=== PATIENT | male | born 1965 | race Caucasian/White ===

== ENCOUNTER 2017-04-13 09:46 | Emergency (ER) | payer BC, SELFPAY ==
[2017-04-13 09:59] VITALS: BP 160/96; PULSE 77; RESP 20; TEMP 38; O2SAT 96; BMI 34.4
--- NOTE | 2017-04-13 10:12 | HMH.EDUTC ---
[facility] [place] Disposition Clinical Impression: Influenza B Disposition: Home, Self-Care Condition on Discharge: Good Instructions: DI for Influenza -- Adult Additional Instructions: * Start Tamiflu today if you are going to take it. Discussed risks and possible benefits. * Lots of rest * Increase fluids, water, gatorade, powerade, pedialyte if /toddler/child * Monitor Temp. Tylenol every 4 hours as needed no more then 5 times a day or 4000mg in 24 hours and/or ibuprofen every 6 hours as needed no more then 3200mg in 24 hours (as long as your primary care doctor has told you that it is ok to take both) for fever/aches/pain. ER if fever no less than 101 despite tylenol and Ibuprofen * OTC cold/flu/sinus medication is ok but pick one. Do not take multiple different ones as they have similar ingredients and you can overdose on cold medication. Use caution with OTC cough and sinus medication due to your high blood pressure. Coriciden HBP products are safest in those with high blood pressure. * You (or your child) are contagious until no fever, aches, chills x 24 hours without medication for symptoms. Prescriptions: Oseltamivir Phosphate [Tamiflu 75mg Capsule] 75 mg PO BID #10 capsule Referrals: Stephen Moreno MD [Primary Care Provider] - (IMMEDIATELY for new or worsening symptoms, improvement followed by suddenly feeling worse OR no noticeable improvement over the next 48-72 hours. 911 for difficulty breathing ) Time of Disposition: 10:20 Medical Decision Making Vital Signs: 04/13/17 09:59 Temperature 100.4 F H Temperature Source Oral Pulse Rate [Right Brachial] 77 Respiratory Rate 20 Blood Pressure [Right Arm] 160/96 Blood Pressure Mean [Right Arm] 117 Blood Pressure Source [Right Arm] Automatic Cuff Blood Pressure Position [Right Arm] Sitting 02 Sat by Pulse Oximetry 96 Oxygen Delivery Method Room Air - Lab Data Lab results reviewed: Yes: I reviewed the patient's lab results. Lab Results 04/13/17 10:06: Influenza Type A Ag Negative, Influenza Type B Ag Positive A FLu B positive - Miguel Inquiry Pt receiving controlled substance: No [facility] [place] HPI - General Stated complaint: drainage,sore throat,coughing Time Seen by Provider: 04/13/17 10:00 Mode of Arrival: Ambulatory Source of Information: Patient Limitations: No Limitations Description of Symptoms (Recalled from Triage Doc. by RN): PT C/O CONGESTION, EARACHE, AND COUGH HEENT Symptoms (Recalled from RN notes): Yes (EARACHE) Resp Symptoms (Recalled from RN notes): Yes (CONGESTION, COUGH) Skin Symptoms (Recalled from RN notes): No MS Symptoms (Recalled from RN notes): No Functional Status (Recalled from RN notes): N/A - History of Present Illness Provider Complaint: c/o PND, rhinorrhea, nasal congestion, cough starting around a week ago. Reports started mild but over the last 24 hours has suddenly been getting worse instead of better. Son had similiar symptoms around the same time and is already feeling better. Pt works in an [employer] school. Has felt feverish at times just recently but no fever at home. Denies aches (other than chronic right knee pain) or chills. otc cold and flu just yesterday didn't seem to help. Otherwise, hasn't taken or tried anything else. - Related Data Previous Rx's Medication Instructions Recorded Oseltamivir Phosphate [Tamiflu 75 mg PO BID #10 cap 04/13/17 75mg Capsule] Allergies Allergy/AdvReac Type Severity Reaction Status Date / Time Penicillins Allergy Verified 04/13/17 10:06 - Worker's Comp Is this a Worker's Comp case?: No [facility] History I have reviewed the patient's past medical history: Yes Medical History: Reports:: Hypertension Denies:: Cancer, Diabetes Mellitus Type 1, Diabetes Mellitus Type 2, MRSA Other Surgeries: Yes: No Previous Surgery Amputation: No Fractures: No - *Social History Smoking Status: Never smoker Alcohol Intake: never - Psychiatric History Expresses thoughts of harming self
--- NOTE | 2017-04-13 10:16 | ED_ITS ---
[facility] [place] Disposition Clinical Impression: Influenza B Disposition: Home, Self-Care Condition on Discharge: Good Instructions: DI for Influenza -- Adult Additional Instructions: * Start Tamiflu today if you are going to take it. Discussed risks and possible benefits. * Lots of rest * Increase fluids, water, gatorade, powerade, pedialyte if /toddler/child * Monitor Temp. Tylenol every 4 hours as needed no more then 5 times a day or 4000mg in 24 hours and/or ibuprofen every 6 hours as needed no more then 3200mg in 24 hours (as long as your primary care doctor has told you that it is ok to take both) for fever/aches/pain. ER if fever no less than 101 despite tylenol and Ibuprofen * OTC cold/flu/sinus medication is ok but pick one. Do not take multiple different ones as they have similar ingredients and you can overdose on cold medication. Use caution with OTC cough and sinus medication due to your high blood pressure. Coriciden HBP products are safest in those with high blood pressure. * You (or your child) are contagious until no fever, aches, chills x 24 hours without medication for symptoms. Prescriptions: Oseltamivir Phosphate [Tamiflu 75mg Capsule] 75 mg PO BID #10 capsule Referrals: Stephen Moreno MD [Primary Care Provider] - (IMMEDIATELY for new or worsening symptoms, improvement followed by suddenly feeling worse OR no noticeable improvement over the next 48-72 hours. 911 for difficulty breathing ) Time of Disposition: 10:20 Medical Decision Making Vital Signs: 04/13/17 09:59 Temperature 100.4 F H Temperature Source Oral Pulse Rate [Right Brachial] 77 Respiratory Rate 20 Blood Pressure [Right Arm] 160/96 Blood Pressure Mean [Right Arm] 117 Blood Pressure Source [Right Arm] Automatic Cuff Blood Pressure Position [Right Arm] Sitting 02 Sat by Pulse Oximetry 96 Oxygen Delivery Method Room Air - Lab Data Lab results reviewed: Yes: I reviewed the patient's lab results. Lab Results 04/13/17 10:06: Influenza Type A Ag Negative, Influenza Type B Ag Positive A FLu B positive - Miguel Inquiry Pt receiving controlled substance: No [facility] [place] HPI - General Stated complaint: drainage,sore throat,coughing Time Seen by Provider: 04/13/17 10:00 Mode of Arrival: Ambulatory Source of Information: Patient Limitations: No Limitations Description of Symptoms (Recalled from Triage Doc. by RN): PT C/O CONGESTION, EARACHE, AND COUGH HEENT Symptoms (Recalled from RN notes): Yes (EARACHE) Resp Symptoms (Recalled from RN notes): Yes (CONGESTION, COUGH) Skin Symptoms (Recalled from RN notes): No MS Symptoms (Recalled from RN notes): No Functional Status (Recalled from RN notes): N/A - History of Present Illness Provider Complaint: c/o PND, rhinorrhea, nasal congestion, cough starting around a week ago. Reports started mild but over the last 24 hours has suddenly been getting worse instead of better. Son had similiar symptoms around the same time and is already feeling better. Pt works in an [employer] school. Has felt feverish at times just recently but no fever at home. Denies aches (other than chronic right knee pain) or chills. otc cold and flu just yesterday didn't seem to help. Otherwise, hasn't taken or tried anything else. - Related Data Previous Rx's Medication Instructions Recorded Oseltamivir Phosphate [Tamiflu 75 mg PO BID #10 cap 04/13/17 75mg Capsule] Allergies Allergy/AdvReac Type Severity Reaction St
[2017-04-13 10:18] LABS: UTC Influenza A Antigen Negative (Negative); UTC Influenza B Antigen Positive (Negative)
[2017-04-13 10:30] VITALS: BP 160/96; PULSE 77; RESP 20; TEMP 38; O2SAT 96
== END 2017-04-13 10:32 | disposition home or self-care (01) ==
PROVIDERS: Emergency Provider Nurse Practitioner Family; Family Provider Family Medicine; PCP Internal Medicine Adolescent Medicine
DX: J11.1 Influenza due to unidentified influenza virus with other respiratory manifestations (principal); I10 Essential (primary) hypertension; Z88.0 Allergy status to penicillin
CPT/HCPCS: 87804; 99202

== ENCOUNTER 2017-06-02 15:28 | Emergency (ER) | payer BC, SELFPAY ==
[2017-06-02 16:24] VITALS: BP 124/86; PULSE 106; RESP 20; TEMP 39.6; O2SAT 99; BMI 37.8
--- NOTE | 2017-06-02 17:01 | HMH.EDUTC ---
[facility] [place] Disposition Clinical Impression: Viral syndrome Disposition: Home, Self-Care Condition on Discharge: Good Instructions: Diarrhea, DI for Fever (Symptom) -- Adult Additional Instructions: Follow up with family doctor in 24 hours if no improvement or worsening of symptoms Collect stool specimen and bring to lab as adived in clinic today If symptoms worsen go straight to er Take 2 Tylenol for fever and monitor fever and keep it down Drink plenty of fluids Return if needed Referrals: Stephen Moreno MD [Primary Care Provider] - Forms: Work/School Release Time of Disposition: 17:28 Medical Decision Making - Medical Records Medical records reviewed: Yes: I reviewed the patient's medical records. Vital Signs: 06/02/17 16:24 Temperature 103.2 F H Temperature Source Temporal Artery Scan Pulse Rate [Brachial] 106 H Respiratory Rate 20 Blood Pressure [Right Arm] 124/86 Blood Pressure Mean [Right Arm] 98 Blood Pressure Source [Right Arm] Automatic Cuff Blood Pressure Position [Right Arm] Sitting 02 Sat by Pulse Oximetry 99 Oxygen Delivery Method Room Air Orders (Tests/Meds): ED MEDICATIONS Discontinued Medications Generic Name Dose Route Start Last Admin Trade Name Asya PRN Reason Stop Dose Admin Ibuprofen 800 mg 06/02/17 16:33 06/02/17 16:45 Motrin 400mg Tablet PO 06/02/17 16:34 800 mg ONCE ONE Administration - Miguel Inquiry Pt receiving controlled substance: No Miguel was queried for this patient: No - Reevaluation(s) Time: 17:23 Reevaluation #1: Consulted with ER physician and agree, Patient fever now 98.8 Patient state that joints no longer achy and feels much better, to order outpaitent diarrhea panel and have results sent to family doctor [facility] [place] HPI - General Stated complaint: Possible Flu Mode of Arrival: Ambulatory Source of Information: Patient Limitations: No Limitations Description of Symptoms (Recalled from Triage Doc. by RN): FLU LIKE SYMPTOMS 2 DAYS HEENT Symptoms (Recalled from RN notes): Yes Resp Symptoms (Recalled from RN notes): No Skin Symptoms (Recalled from RN notes): No MS Symptoms (Recalled from RN notes): No Functional Status (Recalled from RN notes): NA - History of Present Illness Provider Complaint: Patient states that he has not been feeling well since Friday States that last night he begin to have the diarrhea State that then this morning he felt like he may have had a fever and it was 101.0 State that he took some Tylenol and then went on about his day State that this evening he began to have body aches again and felt like he was running a fever again so he came in to get checked out - Related Data Home Medications Medication Instructions Recorded Confirmed Bisoprol/Hydrochlorothiazide 1 each PO DAILY 06/02/17 06/02/17 [Bisoprolol-Hctz 10-6.25 mg Tab] Previous Rx's Medication Instructions Recorded Oseltamivir Phosphate [Tamiflu 75 mg PO BID #10 cap 04/13/17 75mg Capsule] Allergies Allergy/AdvReac Type Severity Reaction Status Date / Time Penicillins Allergy Verified 04/13/17 10:06 - Worker's Comp Is this a Worker's Comp case?: No [facility] History I have reviewed the patient's past medical history: Yes Medical History: Reports:: Hypertension Denies:: Cancer, Diabetes Mellitus Type 1, Diabetes Mellitus Type 2, MRSA Other Surgeries: Yes: No Previous Surgery Amputation: No Fractures: No - Social History Smoking Status: Never smoker Alcohol Intake: never - Psychiatric History Expresses thoughts of harming self/others: None Suicide Plan Description: No Plan ROS Obtained: Yes All systems reviewed & no additional complaints - Constitutional Constitutional: Reports body ache, Reports chills, Reports fever(s) - Cardiovascular Cardiovascular: Denies chest pain - Respiratory Respiratory: No chest congestion, No cough, No dyspnea - Gastrointestinal Gastrointestingal: Reports: diarrhea. Denies: ab
--- NOTE | 2017-06-02 17:22 | ED_ITS ---
[facility] [place] Clinical Impression: Viral syndrome Disposition: Home, Self-Care Condition on Discharge: Good Instructions: Diarrhea, DI for Fever (Symptom) -- Adult Additional Instructions: Follow up with family doctor in 24 hours if no improvement or worsening of symptoms Collect stool specimen and bring to lab as adived in clinic today If symptoms worsen go straight to er Take 2 Tylenol for fever and monitor fever and keep it down Drink plenty of fluids Return if needed Referrals: Stephen Moreno MD [Primary Care Provider] - Forms: Work/School Release Time of Disposition: 17:28 Medical Decision Making - Medical Records Medical records reviewed: Yes: I reviewed the patient's medical records. Vital Signs: 06/02/17 16:24 Temperature 103.2 F H Temperature Source Temporal Artery Scan Pulse Rate [Brachial] 106 H Respiratory Rate 20 Blood Pressure [Right Arm] 124/86 Blood Pressure Mean [Right Arm] 98 Blood Pressure Source [Right Arm] Automatic Cuff Blood Pressure Position [Right Arm] Sitting 02 Sat by Pulse Oximetry 99 Oxygen Delivery Method Room Air Orders (Tests/Meds): ED MEDICATIONS Discontinued Medications Generic Name Dose Route Start Last Admin Trade Name Asya PRN Reason Stop Dose Admin Ibuprofen 800 mg 06/02/17 16:33 06/02/17 16:45 Motrin 400mg Tablet PO 06/02/17 16:34 800 mg ONCE ONE Administration - Miguel Inquiry Pt receiving controlled substance: No Miguel was queried for this patient: No - Reevaluation(s) Time: 17:23 Reevaluation #1: Consulted with ER physician and agree, Patient fever now 98.8 Patient state that joints no longer achy and feels much better, to order outpaitent diarrhea panel and have results sent to family doctor [facility] [place]PI - General Stated complaint: Possible Flu Mode of Arrival: Ambulatory Source of Information: Patient Limitations: No Limitations Description of Symptoms (Recalled from Triage Doc. by RN): FLU LIKE SYMPTOMS 2 DAYS HEENT Symptoms (Recalled from RN notes): Yes Resp Symptoms (Recalled from RN notes): No Skin Symptoms (Recalled from RN notes): No MS Symptoms (Recalled from RN notes): No Functional Status (Recalled from RN notes): NA - History of Present Illness Provider Complaint: Patient states that he has not been feeling well since Friday States that last night he begin to have the diarrhea State that then this morning he felt like he may have had a fever and it was 101.0 State that he took some Tylenol and then went on about his day State that this evening he began to have body aches again and felt like he was running a fever again so he came in to get checked out - Related Data Home Medications Medication Instructions Recorded Confirmed Bisoprol/Hydrochlorothiazide 1 each PO DAILY 06/02/17 06/02/17 [Bisoprolol-Hctz 10-6.25 mg Tab] Previous Rx's Medication Instructions Recorded Oseltamivir Phosphate [Tamiflu 75 mg PO BID #10 cap 04/13/17 75mg Capsule] Allergies Allergy/AdvReac Type Severity Reaction Status Date / Time Penicillins Allergy Verified 04/13/17 10:06 - Worker's Comp Is this a Worker's Comp case?: No H History I have reviewed the patient's past medical history: Yes Medical Histor
[2017-06-02 17:29] VITALS: TEMP 36.6
[2017-06-02 17:33] VITALS: BP 124/86; PULSE 106; RESP 20; TEMP 36.6; O2SAT 99
[2017-06-02 18:24] LABS: UTC Influenza A Antigen Negative (Negative); UTC Influenza B Antigen Negative (Negative)
== END 2017-06-02 17:36 | disposition home or self-care (01) ==
PROVIDERS: Emergency Provider Nurse Practitioner; Family Provider Family Medicine; PCP Internal Medicine Adolescent Medicine
DX: B34.9 Viral infection, unspecified (principal); I10 Essential (primary) hypertension
CPT/HCPCS: 87804; 99203

== ENCOUNTER 2020-03-30 11:01 | Emergency (ER) | payer BC, SELFPAY ==
[2020-03-30 11:15] VITALS: BP 149/99; PULSE 71; RESP 16; TEMP 36.2; O2SAT 99; BMI 36.8
--- NOTE | 2020-03-30 11:45 | HMH.EDUTC ---
[facility] [place] Disposition Clinical Impression: Exposure to COVID-19 virus URI (upper respiratory infection) Qualifiers: URI type: unspecified URI Qualified Code(s): J06.9 - Acute upper respiratory infection, unspecified Disposition: Home, Self-Care Condition on Discharge: Good Instructions: DI for COVID-19 (Suspected or Confirmed ), Coronavirus Disease 2019, Preventing the Spread of Coronavirus Discharge Instructions Additional Instructions: *Monitor Temp, Over the counter Motrin or Tylenol as directed/as needed Tylenol every 4 hours and Motrin every 6 hours (as long as your family doctor has told you that you can take it) for fever or pain. and straight to ER if unable to lower temp less than 101.0 after medication given Follow up IMMEDIATELY for new or worsening symptoms or no Noticeable improvement over the next 48-72 hours. 911 for difficulty breathing or swallowing You were tested for today for COVID19 your test result should be back in the next 24-48 hours, you may call to the [facility] to see if your test results are back in the next 48 hours [phone] [facility] hours are 9am-9pm You was given a handout with instructions for Self Quarantine and Self isolation for while you wait on test results and what to do if they are positive If you are positive the Health Dept will be contacting you also Prescriptions: Azithromycin [Z-Arthur 250mg Tab] 250 mg PO DIRECTED #6 tab Transmission Status: Pending to [facility] Referrals: Stephen Moreno MD [Primary Care Provider] - Forms: Work/School Release Time of Disposition: 11:54 Medical Decision Making - Miguel Inquiry Pt receiving controlled substance: No Miguel was queried for this patient: No Vital Signs: 03/30/20 11:15 Temperature 97.2 F L Temperature Source Oral Pulse Rate [Right Brachial] 71 Respiratory Rate 16 Blood Pressure [Right Arm] 149/99 H Blood Pressure Mean [Right Arm] 115 Blood Pressure Source [Right Arm] Automatic Cuff Blood Pressure Position [Right Arm] Sitting 02 Sat by Pulse Oximetry 99 Oxygen Delivery Method Room Air Orders (Tests/Meds): ORDERS Category Date Time Status Covid-19 Nasal PCR Sendout P&C Routine Lab 03/30/20 11:15 Received [facility] [place] HPI - General Stated complaint: covid exposure Time Seen by Provider: 03/30/20 11:46 Mode of Arrival: Ambulatory Source of Information: Patient Limitations: No Limitations Description of Symptoms (Recalled from Triage Doc. by RN): PATIENT REQUESTING COVID TEST D/T EXPOSURE ON FRIDAY HEENT Symptoms (Recalled from RN notes): No Resp Symptoms (Recalled from RN notes): No Skin Symptoms (Recalled from RN notes): No MS Symptoms (Recalled from RN notes): No Functional Status (Recalled from RN notes): WNL - History of Present Illness Provider Complaint: Patient states that he has been having sinus pain and pressure along with drainage for over a week State that he was recently around family member that tested positive for COVID and at the Hospital in [facility] State that he wanted to come in and get checked State that his throat is feeling scratchy today also - Related Data Home Medications Medication Instructions Recorded Confirmed Bisoprolol/Hydrochlorothiazide 1 each PO DAILY 06/02/17 01/01/18 [Bisoprolol-Hctz 10-6.25 mg Tab] Previous Rx's Medication Instructions Recorded Azithromycin [Z-Arthur 250mg Tab] 250 mg PO DIRECTED #6 tab 03/30/20 Allergies Allergy/AdvReac Type Severity Reaction Status Date / Time Penicillins Allergy Verified 01/01/18 18:10 - Worker's Comp Is this a Worker's Comp case?: No [facility] History - Hepatitis A Screen Drug use history?: No High risk sexual behaviors?: No History of sexually transmitted infection?: No Currently employed?: No Childcare worker?: No Do you have indoor plumbing?: Yes Do you have electricity?: Yes Attestation statement:: This patient has been screened for Hepatitis A risk factors. I have reviewed
[2020-03-30 11:58] VITALS: BP 149/99; PULSE 71; RESP 16; TEMP 36.2; O2SAT 99
[2020-03-31 13:50] LABS: Covid-19 Nasal PCR Sendout P&C POSITIVE
--- NOTE | 2020-03-31 15:14 | PC.NURSE ---
patient notified of positive covid test
== END 2020-03-30 12:00 | disposition home or self-care (01) ==
PROVIDERS: Emergency Provider Nurse Practitioner; PCP Internal Medicine Adolescent Medicine
DX: U07.1 COVID-19 (principal); I10 Essential (primary) hypertension; Z79.899 Other long term (current) drug therapy
CPT/HCPCS: 99202; G0463; U0004

== ENCOUNTER → 2021-01-03 12:56 | Outpatient (CLI) | payer BC, SELFPAY ==
[2021-01-03 15:13] LABS: Chloride 96 mmol/L (98-107)
[2021-01-03 15:14] LABS: Potassium 4.7 mmoL/L (3.5-5.1); Sodium 135 mmol/L (136-145)
[2021-01-03 15:16] LABS: Alanine Aminotransferase 19 U/L (12-78); Albumin Level 4.7 g/dl (3.5-5.0); Albumin/Globulin Ratio 1.6 (1.1-1.8); Alkaline Phosphatase 65 U/L (38-126); Anion Gap 17.7 mEq/L (5-15); Aspartate Amino Transferase 26 U/L (17-59); Bilirubin,Total 1.2 mg/dl (0.2-1.3); Blood Urea Nitrogen 12 mg/dl (9-20); Carbon Dioxide 26 mmol/L (22.0-30.0); Estimated Glomerular Filt Rate 87 ml/min (>60); GFR (African American) 106 ML/MIN (>60); Globulin 2.9 g/dL (1.3-3.2); Total Protein,Serum 7.6 g/dl (6.3-8.2)
[2021-01-03 15:17] LABS: Chol/HDL Ratio 9.4 (1-3.5); Cholesterol 235 mg/dl (140-200); HDL Cholesterol 25 mg/dl (40-60)
[2021-01-03 15:32] LABS: Triglycerides 639 mg/dl (30-150)
[2021-01-03 15:35] LABS: Glucose 485 mg/dl (74-100)
== END ==
PROVIDERS: PCP Internal Medicine Adolescent Medicine; Visit Provider Nurse Practitioner Family
DX: Z00.00 Encounter for general adult medical examination without abnormal findings (principal); I10 Essential (primary) hypertension; G47.30 Sleep apnea, unspecified; R06.83 Snoring
CPT/HCPCS: 36415; 80053; 80061; G0399

== ENCOUNTER → 2021-01-04 10:31 | Outpatient (CLI) | payer BC, SELFPAY ==
[2021-01-04 11:43] LABS: Hemoglobin A1C 12.5 % (4.0-6.0)
== END ==
PROVIDERS: Visit Provider Internal Medicine Adolescent Medicine
DX: R73.9 Hyperglycemia, unspecified (principal)
CPT/HCPCS: 36415; 83036

== ENCOUNTER 2021-01-09 10:41 | Observation (INO) | payer BC, SELFPAY ==
[2021-01-09] VITALS (28 sets, daily range): BP systolic 107–177; BP diastolic 63–117; PULSE 85–117; RESP 16–20; TEMP 36.9–37.6; O2SAT 91–99; BMI 34.0
--- NOTE | 2021-01-09 | IR_ITS ---
APPROVED REPORT Patient Location: Emergent Nut Threader: ANAYA Max RT (R) PROCEDURES Right femoral vein access Pulmonary artery angiogram prior to pulmonary artery embolism embolectomy Mechanical pulmonary artery embolism embolectomy Post embolectomy pulmonary artery angiogram INDICATION Saddle pulmonary embolism Informed consent was obtained prior to the procedure. COMPLICATIONS none Estimated Blood Loss: less than 10 ml TECHNIQUE 1% lidocaine used anesthetize the right groin right 4 vein was accessed via the Salinger technique. A 5 Filipino sheath was used to predilate this track into the pulmonary vein and this was followed by a 12 Filipino sheath which was advanced under fluoroscopic guidance into the right atrium. A pigtail catheter was then placed in the right ventricle and an advantage wire was placed down to the pulmonary artery. A CAT 12 aspiration catheter was then advanced after angiography was performed. A large amount of thrombus was aspirated from the right and left pulmonary artery. At the end of the procedure repeat angiography demonstrated wide patency of the pulmonary arteries. A Z stitch was placed and a 12 Filipino sheath was removed from the femoral vein. 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 Continue heparin 2. Start Xarelto 15 mg twice daily this evening continue for the next 21 days and then switch to 20 mg daily 3. Patient requires aggressive cancer screenings. He was recently diagnosed with new onset diabetes with a hemoglobin A1c of 12. It is important to check patient for nephrotic syndrome which could be contributing to hypercoagulable state 4. Recommend PSA colonoscopy screening and extensive malignancy screen to evaluate for hypercoagulable state Electronically signed by : Tucker John MD 01/09/2021 15:31:02
--- NOTE | 2021-01-09 10:39 | ECG_ITS ---
APPROVED REPORT Exam: Resting ECG HR:115 bpm ECG Measurements Heart Rate [address] 124 P 67 QRSd 92 QRS 95 QT 332 T 24 QTc 459 Conclusion Sinus tachycardia Possible Left atrial enlargement Rightward axis Anterior infarct, age undetermined Abnormal ECG Electronically signed by : Stephen Moreno MD 01/10/2021 21:20:49
--- NOTE | 2021-01-09 10:42 | HMH.EDGENADL ---
ED Disposition Clinical Impression: Pulmonary embolism Qualifiers: Pulmonary embolism type: saddle Chronicity: acute Acute cor pulmonale presence: unspecified Qualified Code(s): I26.92 - Saddle embolus of pulmonary artery without acute cor pulmonale Disposition: Admitted As Inpatient Condition on Discharge: Serious Referrals: Stephen Moreno MD [Primary Care Provider] - - Critical Care Critical Care Time: No Attestation: On , the high probability of a clinically significant, sudden or life threatening deterioration of the following system(s) required my full and direct attention, intervention and personal management. The time I documented below is in addition to time spent performing reported procedures but includes the following listed in this critical care notation. Medical Decision Making - Miguel Inquiry Pt receiving controlled substance: No Vital Signs: 01/09/21 10:41 01/09/21 11:08 01/09/21 11:30 Temperature 98.4 F Temperature Source Oral Pulse Rate 114 H 117 H Pulse Rate [Right Radial] 116 H Respiratory Rate 18 Blood Pressure 158/103 H 177/113 H Blood Pressure [Right Arm] 148/106 H Blood Pressure Mean 114 120 Blood Pressure Mean [Right Arm] 120 Blood Pressure Source [Right Arm] Automatic Cuff Blood Pressure Position [Right Arm] Supine 02 Sat by Pulse Oximetry 96 94 L 95 Oxygen Delivery Method Room Air 01/09/21 11:45 Temperature Temperature Source Pulse Rate 110 H Pulse Rate [Right Radial] Respiratory Rate Blood Pressure 157/105 H Blood Pressure [Right Arm] Blood Pressure Mean 120 Blood Pressure Mean [Right Arm] Blood Pressure Source [Right Arm] Blood Pressure Position [Right Arm] 02 Sat by Pulse Oximetry 93 L Oxygen Delivery Method - Lab Data Lab Results 01/09/21 10:54: WBC 10.6, RBC 5.44, Hgb 18.3 H, Hct 54.4 H, MCV 100.0 H, MCH 33.7 H, MCHC 33.7, RDW 12.7, Plt Count 227, MPV 9.6, Neut % (Auto) 67.8, Lymph % (Auto) 23.7, [place] % (Auto) 7.0, Eos % (Auto) 0.8, Baso % (Auto) 0.7, Neut # (Auto) 7.2, Lymph # (Auto) 2.5, [place] # (Auto) 0.7, Eos # (Auto) 0.1, Baso # (Auto) 0.1 01/09/21 10:54: Sodium 135 L, Potassium 3.9, Chloride 102, Carbon Dioxide 19 L, Anion Gap 17.9 H, BUN 18, Creatinine 0.90, Estimated Creat Clear 128, Estimated GFR 87, Est GFR ( Amer) 106, Glucose 185 H, Calcium 9.0, Troponin I 0.04 H 01/09/21 10:54: D-Dimer 3.26 H Result diagrams: 01/09/21 10:54 01/09/21 10:54 Orders (Tests/Meds): ED MEDICATIONS Generic Name Dose Route Start Last Admin Trade Name Freq PRN Reason Stop Dose Admin Fentanyl Citrate 25 mcg 01/09/21 13:23 Fentanyl 100mcg/2ml Vial IV 01/10/21 13:23 Q3MINP PRN Moderate to Severe Pain Fentanyl Citrate 50 mcg 01/09/21 13:23 Fentanyl 100mcg/2ml Vial IV 01/10/21 13:23 Q3MINP PRN Moderate to Severe Pain Fentanyl Citrate 25 mcg 01/09/21 13:23 Fentanyl 250mcg/5ml Vial IV 01/10/21 13:23 Q3MINP PRN Moderate to Severe Pain Fentanyl Citrate 50 mcg 01/09/21 13:23 Fentanyl 250mcg/5ml Vial IV 01/10/21 13:23 Q3MINP PRN Moderate to Severe Pain Flumazenil 0.2 mg 01/09/21 13:23 Flumazenil 0.1mg/Ml 5ml Vial IV 01/09/21 23:00 NEEDED PRN Sedation Heparin Sodium (Porcine) 10,000 unit 01/09/21 13:23 Heparin 1,000 Units/Ml 10ml Vial (Curing Press Maintainer) IV 01/09/21 17:23 NEEDED PRN Emergency Box Purse Seiner Heparin Sodium/Dextrose 500 mls @ 30 mls/hr 01/09/21 13:15 01/09/21 13:22 Heparin 25,000 Units In D5w 500ml Premix IV 02/08/21 13:14 30 mls/hr .[id number] LEDA Administration 1,500 UNITS/HR Sodium Chloride 1,000 mls @ 25 mls/hr 01/09/21 13:30 Sod Chlor 0.9% 1000ml Bag IV 01/10/21 13:23 .Q25H LEDA Midazolam HCl 1 mg 10/12/21 13:23 Midazolam 2mg/2ml Vial IV 01/10/21 13:23 Q3MINP PRN Sedation Midazolam HCl 1 mg 01/09/21 13:23 Midazolam Hcl 1mg/1ml 5ml Vial IV 01/10/21 13:23 Q3MINP PRN Sed
--- NOTE | 2021-01-09 10:45 | XR_ITS ---
PROCEDURE: XR CHEST 2V CLINICAL HISTORY: Chest pain Cough COMPARISON: No exams were available for comparison FINDINGS: The cardiomediastinal silhouette and pulmonary vascularity are within normal limits. There is a 15 mm nodular opacity in the left suprahilar region. This may only be related to summation artifact from the vessels and ribs. Cannot exclude a sclerotic lesion of the rib or a pulmonary nodule. Chest CT may provide further evaluation. The remaining lungs are clear aside from a calcified granuloma in the right lower lobe. There is partial fusion of T8-T9 and T9-T10 anteriorly with mild degenerative changes of the thoracic spine IMPRESSION: Possible left suprahilar nodule. Consider CT with contrast for further evaluation. Otherwise no acute finding Dictated by: Jaspal Maki MD 01/09/2021 12:24 Jaspal Maki MD in [facility] 01/09/2021 12:24
[2021-01-09 10:59] LABS: Basophils # 0.1 K/mm3 (0-0.2); Basophils % 0.7 % (0.1-2.0); Eosinophils # 0.1 K/mm3 (0.0-0.4); Eosinophils % 0.8 % (0.1-12.0); Hematocrit 54.4 % (42.0-52.0); Lymphocytes # 2.5 K/mm3 (0.7-4.5); Lymphocytes % 23.7 % (10-50); Mean Corpuscular HGB Conc 33.7 g/dL (31.8-35.4); Mean Corpuscular Hemoglobin 33.7 pg (27.0-31.2); Mean Platelet Volume 9.6 fl (7.4-10.4); Monocytes # 0.7 K/mm3 (0.1-1.0); Neutrophils # 7.2 K/mm3 (1.8-7.8); Neutrophils % 67.8 % (37.0-80.0); Platelet Count 227 K/mm3 (142-424); Red Blood Count 5.44 M/mm3 (4.60-6.20); Red Cell Distribution Width 12.7 % (11.5-17.5); White Blood Count 10.6 K/mm3 (4.8-10.8)
--- NOTE | 2021-01-09 10:59 | PC.NURSE ---
Pt to rad
[2021-01-09 11:07] LABS: Hemoglobin 18.3 g/dL (14.1-18.0)
--- NOTE | 2021-01-09 11:08 | PC.NURSE ---
Pt is sitting up in bed. Stats are good. Offered blanket to pt he declined. Stated he was fine and would reach out if he needs anything. Will continue to monitor pt.
[2021-01-09 11:12] LABS: Anion Gap 17.9 mEq/L (5-15); Blood Urea Nitrogen 18 mg/dl (9-20); Carbon Dioxide 19 mmol/L (22.0-30.0); Chloride 102 mmol/L (98-107); Creatinine Clearance Estimated 128 mL/min (50-200); Estimated Glomerular Filt Rate 87 ml/min (>60); GFR (African American) 106 ML/MIN (>60); Glucose 185 mg/dl (74-100); Potassium 3.9 mmoL/L (3.5-5.1); Sodium 135 mmol/L (136-145)
[2021-01-09 11:24] LABS: Troponin I 0.04 ng/ml (0.00-0.034)
[2021-01-09 11:53] LABS: D-Dimer 3.26 ug/mL (0.0-0.5)
--- NOTE | 2021-01-09 12:02 | CT_ITS ---
PROCEDURE: CT ANGIO CHEST PE PROTOCOL CLINCIAL INDICATION: soa, elev d-dimer COMPARISON: No exams were available for comparison TECHNIQUE: IV Contrast: 70ML Isovue 370 Axial images obtained with sagittal and coronal reformats. All CT scans at the facility use one or more dose reduction, viz: automated exposure control, ma/kV adjustment per patient size (including targeted exams where dose is matched to indication, i.e. head), or iterative reconstruction technique. FINDINGS: HEART AND MEDIASTINAL STRUCTURES: There is a large embolus within the right main pulmonary artery extending into the upper and lower branches. A small saddle embolus is present. Pulmonary emboli also noted in the distal left main and left upper and left lower lobe pulmonary segmental branches. There is mild bowing of the intraventricular septum with an RV/LV ratio greater than 1. There is some reflux of contrast into the inferior vena cava. LUNGS AND PLEURAL SPACES: No lobar consolidation or collapse. There is evidence of old granulomatous disease. No effusions or infiltrates. Minimal atelectatic or fibrotic changes are present in the lingula. BONY STRUCTURES: Degenerative changes in the thoracic spine with partial fusion of T8-T9 and T9-T10 anteriorly and T3 and T4 anteriorly. UPPER ABDOMEN: Unremarkable. ADDITIONAL FINDINGS: No other significant abnormalities. IMPRESSION: There is large burden pulmonary emboli as described above. Signs of right heart strain are present with an RV/LV ratio of greater than 1 and mild bowing of the intraventricular septum. Significant findings called to Dr. Cross the ER 01/09/2021 at 1 p.m.. Dictated by: Jaspal Maki MD 01/09/2021 13:03 Jaspal Maki MD in [facility] 01/09/2021 13:03
--- NOTE | 2021-01-09 12:04 | PC.NURSE ---
notified rad of CTA chest order
--- NOTE | 2021-01-09 12:30 | PC.NURSE ---
Pt to rad
--- NOTE | 2021-01-09 12:31 | PC.NURSE ---
Pt went to CT
--- NOTE | 2021-01-09 13:07 | PC.NURSE ---
SARAI TARIQ speaking with DR. Jhon
--- NOTE | 2021-01-09 13:11 | PC.NURSE ---
confirmed heparin dosing with cadence in pharmacy per Dr. quispe dosing
--- NOTE | 2021-01-09 13:13 | PC.NURSE ---
Ferdinand is going to call back to speak with MD. Moreno not available.
--- NOTE | 2021-01-09 13:20 | PC.NURSE ---
Patient was updated by ER on condition. Patient requested we call his girlfriend Chata and let her know everything that is going on. Chata was called at [phone] and updated appropriately. She advised she would update his kids.
--- NOTE | 2021-01-09 13:35 | PC.NURSE ---
jeffery alberton at BS
--- NOTE | 2021-01-09 13:42 | PC.NURSE ---
speaking with Ferdinand at this time.
--- NOTE | 2021-01-09 13:43 | PC.NURSE ---
industrial laborer RN at bedside. Pt going up to mill laborer.
--- NOTE | 2021-01-09 13:46 | HMH.CNCARD ---
History of Present Illness Consult date: 01/09/21 Requesting physician: Pietro Cormier Consult reason: shortness of breath Chief complaint: soa History of present illness: This is a 55-year-old white gentleman who woke up this morning feeling weird. The patient states that he was in bed till 930 this morning which was unusual for him and that he started freaking out. He states that he kind of felt like he was short on breath and had a discomfort in the center of his chest. He describes this as a pressure sensation. The patient states that for the last 2 weeks he may have been a little bit of short of breath and pressure in his chest but he attributed this to working out. He also thought he had reflux and recently saw his primary care provider last week and was started on medications for acid reflux. He was also diagnosed with diabetes last week when he went to see his primary care provider. His blood sugar at that time was 480. He states that it has been under fairly good control since starting his new medications and states his blood sugar this morning was around 140. He did check his blood pressure today and it was high so this was concerning because he felt weird and decided to come into the emergency department. He denies any fever, chills, nausea, vomiting, diarrhea, PND or orthopnea. The patient denies any tobacco use. He states that he does smoke marijuana occasionally and he also occasionally drinks alcohol. [facility] History I have reviewed the patient's past medical history: Yes Medical History: Reports:: Diabetes Mellitus Type 2, Gastroesophageal Reflux Disease(GERD), Hypertension Denies:: Cancer, Diabetes Mellitus Type 1, MRSA *Have you ever received a pneumonia vaccine?: No *Have you received a flu vaccine this season?: No Other Surgeries: Yes: No Previous Surgery Amputation: No Fractures: No - *Social History Smoking Status: Never smoker Alcohol Intake: never Substance Use Type: denies use *Occupational Status:: other *Travel in the last 8 weeks: None Family Hx:: Non-contributory Meds Home Medications Medication Instructions Recorded Confirmed Type Bisoprolol/Hydrochlorothiazide 1 each PO DAILY 06/02/17 01/01/18 History [Bisoprolol-Hctz 10-6.25 mg Tab] Azithromycin [Z-Arthur 250mg Tab] 250 mg PO DIRECTED #6 tab 03/30/20 Rx Allergies Allergy/AdvReac Type Severity Reaction Status Date / Time Penicillins Allergy Verified 01/01/18 18:10 Exam Vital signs and Labs for Last 24 Hours: Temp Pulse Resp BP Pulse Ox 98.4 F 110 H 18 157/105 H 93 L 01/09/21 10:41 01/09/21 11:45 01/09/21 10:41 01/09/21 11:45 01/09/21 11:45 Laboratory Results - last 24 hr 01/09/21 10:54: WBC 10.6, RBC 5.44, Hgb 18.3 H, Hct 54.4 H, MCV 100.0 H, MCH 33.7 H, MCHC 33.7, RDW 12.7, Plt Count 227, MPV 9.6, Neut % (Auto) 67.8, Lymph % (Auto) 23.7, [place] % (Auto) 7.0, Eos % (Auto) 0.8, Baso % (Auto) 0.7, Neut # (Auto) 7.2, Lymph # (Auto) 2.5, [place] # (Auto) 0.7, Eos # (Auto) 0.1, Baso # (Auto) 0.1 01/09/21 10:54: Sodium 135 L, Potassium 3.9, Chloride 102, Carbon Dioxide 19 L, Anion Gap 17.9 H, BUN 18, Creatinine 0.90, Estimated Creat Clear 128, Estimated GFR 87, Est GFR ( Amer) 106, Glucose 185 H, Calcium 9.0, Troponin I 0.04 H 01/09/21 10:54: D-Dimer 3.26 H I & O for Last 24 hours: Intake & Output 01/06/21 01/07/21 01/08/21 01/09/21 23:59 23:59 23:59 23:59 Weight 217 lb Narrative: CT chest shows: There is large burden pulmonary emboli as described above. Signs of right heart strain are present with an RV/LV ratio of greater than 1 and mild bowing of the intraventricular septum. EKG is sinus tachycardia with a rate of 115, left atrial enlargement, right axis deviation and old anterior ND pattern. - Constitutional no acute distress, obese - *Routine HEENT Exam Head: Present: normocephalic, atraumatic Eye: Present: EOMI, PERRL ENT: Present: mucous membranes moist - *Routine Neck Exam
--- NOTE | 2021-01-09 13:47 | PC.NURSE ---
notified care management of admission, spoke with maximino
--- NOTE | 2021-01-09 13:51 | PC.NURSE ---
Called [facility] in [place] and obtained medication list.
[2021-01-09 13:55] LABS: Coronavirus 19, PCR Not Detected (NotDetected); Influenza A, PCR Not Detected (NotDetected); Influenza B, PCR Not Detected (NotDetected)
[2021-01-09 15:36] LABS: CATHL Activated Clotting Time 373 SEC (74-125)
[2021-01-09 15:37] LABS: CATHL Activated Clotting Time 237 SEC (74-125)
[2021-01-09 17:00] LABS: Activated Partial Thrombo Time 135.2 seconds (22.8-30.6)
--- NOTE | 2021-01-09 19:21 | HMH.HP ---
*Admission Date: 01/09/21 *History of present illness: Following from Cardiology HPI: Mr. Richardson is a 55-year-old white gentleman who woke up this morning feeling weird. The patient states that he was in bed till 930 this morning which was unusual for him and that he started freaking out. He states that he kind of felt like he was short on breath and had a discomfort in the center of his chest. He describes this as a pressure sensation. The patient states that for the last 2 weeks he may have been a little bit of short of breath and pressure in his chest but he attributed this to working out. He also thought he had reflux and recently saw his primary care provider last week and was started on medications for acid reflux. He was also diagnosed with diabetes last week when he went to see his primary care provider. His blood sugar at that time was 480. He states that it has been under fairly good control since starting his new medications and states his blood sugar this morning was around 140. He did check his blood pressure today and it was high so this was concerning because he felt weird and decided to come into the emergency department. He denies any fever, chills, nausea, vomiting, diarrhea, PND or orthopnea. The patient denies any tobacco use. He states that he does smoke marijuana occasionally and he also occasionally drinks alcohol. On interview this afternoon, the patient's significant other stated they thought he was having anxiety with his chest discomfort. Patient states he is overall feeling better. Denies any further chest pain. Remains mildly tachycardic. Is afebrile. Eating dinner. On arrival to the ER, he was found to have tachycardia, normal pulse ox on room air, with initial work-up concerning for elevated D-dimer. CTA performed showing saddle embolus. Cardiology was consulted for embolectomy and patient admitted to medicine for further management after going to the [facility] for intervention. Significant clot burden removed by cardiology. [facility] History I have reviewed the patient's past medical history: Yes Medical History: Reports:: Diabetes Mellitus Type 2, Gastroesophageal Reflux Disease(GERD), Hypertension Denies:: Cancer, Diabetes Mellitus Type 1, MRSA *Have you ever received a pneumonia vaccine?: No *Have you received a flu vaccine this season?: No Laterality Cases: Right: Arthroscopy Knee Other Surgeries: Yes: No Previous Surgery Amputation: No Fractures: No - *Social History Last grade of school completed: High school graduate Smoking Status: Never smoker Alcohol Intake: current Alcohol Intake Frequency:: holidays/special occasions only Substance Use Type: denies use *Occupational Status:: employed *Travel in the last 8 weeks: None Family Hx:: Cancer, Diabetes, Heart Attack Review of Systems - Review of Systems Review of systems:: pertinent systems reviewed and negative unless documented below (14 point review of systems performed, pertinent positives and negatives as per HPI) Meds Home Medications Medication Instructions Recorded Confirmed Type Bisoprolol/Hydrochlorothiazide 1 each PO DAILY 06/02/17 01/09/21 History [Bisoprolol-Hctz 10-6.25 mg Tab] Dapagliflozin Propanediol [Farxiga] 10 mg PO DAILY 01/09/21 01/09/21 History Metformin HCl [Metformin HCl ER] 500 mg PO BID 01/09/21 01/09/21 History Omeprazole [Omeprazole 40mg 40 mg PO DAILY 01/09/21 01/09/21 History Capsule] lisinopriL [Lisinopril] 10 mg PO DAILY 01/09/21 01/09/21 History Allergies Allergy/AdvReac Type Severity Reaction Status Date / Time Penicillins Allergy Verified 01/01/18 18:10 Exam Vital signs and Labs for Last 24 Hours: Temp Pulse Resp BP Pulse Ox 98.6 F 103 H 18 131/85 98 01/09/21 13:49 01/09/21 16:00 01/09/21 15:35 01/09/21 15:35 01/09/21 15:35 Laboratory Results - last 24 hr 01/09/21 10:54: WBC 10.6, RBC 5.44, Hgb 18.3 H, Hct 54.4 H, MCV 100.0 H, MCH 33.7 H, MCHC 33.7,
[2021-01-09 20:17] LABS: Activated Partial Thrombo Time 51.8 seconds (22.8-30.6)
[2021-01-10] VITALS: BP 112/66; PULSE 90; PULSE 97; RESP 18; TEMP 37.4; O2SAT 90
[2021-01-10 00:49] LABS: POC Glucose,Bedside 139 (70-110)
[2021-01-10 00:49] LABS: POC Glucose,Bedside 232 (70-110)
[2021-01-10 02:00] VITALS: BP 125/82; PULSE 103; RESP 18; TEMP 37.3; O2SAT 96
--- NOTE | 2021-01-10 02:02 | PC.NURSE ---
Addendum entered by Chantell Del Rosario RN 01/10/21 06:48: Ramon Solano at 0200 no further PTT to be drawn Original Note: ramon Solano (pharmacist at [facility]) continue with current dose of Heparin drip until 0430 when 2nd dose of Xarelto is given.
[2021-01-10 04:00] VITALS: BP 107/68; PULSE 90; PULSE 96; RESP 18; TEMP 37; O2SAT 91
[2021-01-10 04:53] LABS: POC Glucose,Bedside 175 (70-110)
[2021-01-10 05:55] VITALS: O2SAT 93
[2021-01-10 06:00] VITALS: PULSE 94; RESP 18; TEMP 37.1; O2SAT 93; BMI 34.0
--- NOTE | 2021-01-10 07:15 | P.CONPHA_ITS ---
[facility] Pharmacy VTE Monitoring - Patient Demographics Admission date: 01/10/21 Report Date: 01/10/21 Time: 07:16 Allergies/Adverse Reactions: Patient Allergies Penicillins Allergy (Verified 01/01/18 18:10) Height: 1.7 m Weight: 98.43 kg Patient Problems: Current Active Problems Pulmonary embolism (Acute) Shortness of breath (Acute) Sinus tachycardia (Acute) Hypertension (Acute) Diabetes mellitus (Acute) Obesity (BMI 30.0-34.9) (Chronic) - VTE Risk Labs: VTE Related Lab Results Hgb 18.3 g/dL (14.1-18.0) H 01/09/21 10:54 Hct 54.4 % (42.0-52.0) H 01/09/21 10:54 Plt Count 227 K/mm3 (142-424) 01/09/21 10:54 APTT 51.8 seconds (22.8-30.6) H 01/09/21 20:00 BUN 18 mg/dl (9-20) 01/09/21 10:54 Creatinine 0.90 mg/dl (0.66-1.25) 01/09/21 10:54 Estimated Creat Clear 128 mL/min (50-200) 01/09/21 10:54 Was VTE Risk Assessment Performed: Yes VTE Score: 2 VTE Risk Level: Very Low Risk Clinical Trial Participant: No - Prophylaxis VTE Prophylaxis Ordered?: Yes Types of VTE Prophylaxis: TEDS Knee High, Pharmacological Pharmacologic Type: Other (xarelto)
--- NOTE | 2021-01-10 07:17 | HMH.PHAINT ---
home medication list verified using list from [facility]
[2021-01-10 08:00] VITALS: PULSE 110
--- NOTE | 2021-01-10 08:32 | HMH.DCSUM ---
General - General Admission date:: 01/09/21 Discharge date: 01/10/21 HPI HPI: Following from Cardiology HPI: Mr. Richardson is a 55-year-old white gentleman who woke up this morning feeling weird. The patient states that he was in bed till 930 this morning which was unusual for him and that he started freaking out. He states that he kind of felt like he was short on breath and had a discomfort in the center of his chest. He describes this as a pressure sensation. The patient states that for the last 2 weeks he may have been a little bit of short of breath and pressure in his chest but he attributed this to working out. He also thought he had reflux and recently saw his primary care provider last week and was started on medications for acid reflux. He was also diagnosed with diabetes last week when he went to see his primary care provider. His blood sugar at that time was 480. He states that it has been under fairly good control since starting his new medications and states his blood sugar this morning was around 140. He did check his blood pressure today and it was high so this was concerning because he felt weird and decided to come into the emergency department. He denies any fever, chills, nausea, vomiting, diarrhea, PND or orthopnea. The patient denies any tobacco use. He states that he does smoke marijuana occasionally and he also occasionally drinks alcohol. On interview this afternoon, the patient's significant other stated they thought he was having anxiety with his chest discomfort. Patient states he is overall feeling better. Denies any further chest pain. Remains mildly tachycardic. Is afebrile. Eating dinner. On arrival to the ER, he was found to have tachycardia, normal pulse ox on room air, with initial work-up concerning for elevated D-dimer. CTA performed showing saddle embolus. Cardiology was consulted for embolectomy and patient admitted to medicine for further management after going to the [facility] for intervention. Significant clot burden removed by cardiology. Hospital Course Hospital Course: Patient was admitted, diagnosis of massive saddle embolus was made and patient was taken to the [facility] where a significant amount of obstructing thrombus was removed with excellent results and improvement of patient's hemodynamic status immediately. Patient was transferred to the stepdown unit. Watched overnight. Did well, no evidence of right heart failure. No evidence of tachycardia or further pain through the night. Patient's hypercoagulable factors include COVID-19 infection in March with possible residual inflammation as well as nightly smoking of marijuana cigarettes. He denies family history of clotting deficits. Patient is feeling better and wishes to go home and from a hemodynamic standpoint is stable. We will send him home on Xarelto twice daily for the appropriate length of time and then transition to 20 mg daily for long-term. I have ordered clotting studies before patient's discharge. We will see him next week in our office and he will be followed in cardiology clinic also. Objective Vital signs: Temp Pulse Resp BP Pulse Ox 98.8 F 94 H 18 107/68 L 93 L 01/10/21 06:00 01/10/21 06:00 01/10/21 06:00 01/10/21 04:00 01/10/21 06:00 no acute distress - *Routine HEENT Exam Head: Present: normocephalic Eye: Present: EOMI, PERRL ENT: Present: mucous membranes moist - *Routine Neck Exam Present: supple - *Routine Respiratory Exam Present: CTA bilaterally - *Routine Cardiovascular Exam Present: RRR - *Routine Abdominal Exam Present: soft, normoactive bowel sounds. Absent: tenderness - *Routine Extremities Exam Absent: cyanosis, clubbing, edema - *Routine Skin Exam Present: warm. Absent: rash - Detailed Eye Exam Eyelids: Bilateral normal inspection Results Labs on day of discharge: Labs from last 24 hours 01/10/21 01/09/21 01/09/21 04:40 21:04 20:00
--- NOTE | 2021-01-10 08:35 | HMH.PHAHEP ---
[facility] Pharmacy Heparin Dosing - Demographic Data Admission date:: 01/09/21 Date: 01/10/21 Time: 08:35 Allergies/Adverse Reactions: Allergies Allergy/AdvReac Type Severity Reaction Status Date / Time Penicillins Allergy Verified 01/01/18 18:10 Height: 1.7 m Weight: 98.43 kg - Indication Medication therapy:: Heparin Current Indications:: PULMONARY EMBOLISM Patient Problems: Current Active Problems Pulmonary embolism (Acute) Shortness of breath (Acute) Sinus tachycardia (Acute) Hypertension (Acute) Diabetes mellitus (Acute) Obesity (BMI 30.0-34.9) (Chronic) CVA?: No Bleeding problem?: No Kidney disease?: No ME?: No Desired PTT range:: Other Comments:: 50-75 - Labs Anticoagulation Lab Results:: 01/09/21 10:54 Hgb 18.3 H Hct 54.4 H Plt Count 227 - Monitoring Dose Monitor 1 Date: 01/09/21 Time: 16:18 PTT Result:: 135.2 Infusion Rate:: HEPARIN 30 ML/HR (1500 UNITS/HR) Dose Monitor 2 Date: 01/18/21 Time: 20:00 PTT Result:: 51.8 Infusion Rate:: HEPARIN CONTINUED AT 30 ML/HR (1500 UNITS/HR) Comment:: XARELTO STARTED BID AT 1630 Q12H DOSING. HEPARIN DRIP TO BE STOPPED AFTER 2ND DOSE OF XARELTO IS GIVEN. - Core Measures Is INR > or = 2 at discharge?: No Most Recent Labs:: Laboratory Results - last 24 hr 01/09/21 10:54: WBC 10.6, RBC 5.44, Hgb 18.3 H, Hct 54.4 H, MCV 100.0 H, MCH 33.7 H, MCHC 33.7, RDW 12.7, Plt Count 227, MPV 9.6, Neut % (Auto) 67.8, Lymph % (Auto) 23.7, [place] % (Auto) 7.0, Eos % (Auto) 0.8, Baso % (Auto) 0.7, Neut # (Auto) 7.2, Lymph # (Auto) 2.5, [place] # (Auto) 0.7, Eos # (Auto) 0.1, Baso # (Auto) 0.1 01/09/21 10:54: Sodium 135 L, Potassium 3.9, Chloride 102, Carbon Dioxide 19 L, Anion Gap 17.9 H, BUN 18, Creatinine 0.90, Estimated Creat Clear 128, Estimated GFR 87, Est GFR ( Amer) 106, Glucose 185 H, Calcium 9.0, Troponin I 0.04 H 01/09/21 10:54: D-Dimer 3.26 H 01/09/21 13:42: SARS-CoV-2 (PCR) Not detected, Influenza A Untype (PCR) Not detected, Influenza Type B (PCR) Not detected 01/09/21 14:02: Activated Clotting Time 237 H* 01/09/21 14:59: Activated Clotting Time 373 H* D 01/09/21 16:18: APTT 135.2 H* 01/09/21 17:32: POC Glucose 139 H 01/09/21 20:00: APTT 51.8 H 01/09/21 21:04: POC Glucose 232 H 01/10/21 04:40: POC Glucose 175 H If INR was < than 2.0 why was therapy stopped?: XARELTO STARTED Were Heparin and Warfarin started on the same day?: No If not, why?: XARELTO STARTED
--- NOTE | 2021-01-10 08:58 | HMH.PNCARD ---
Subjective Date: 01/10/21 Time: 08:30 Principal diagnosis: PE Interval history: This is a 55-year-old white gentleman who presented to the emergency department stating that he felt weird and having some shortness of breath. The patient was found to have a large saddle emboli and underwent embolectomy yesterday in the [facility]. The patient had a significant amount of debulking of the pulmonary emboli and he is feeling much better today. He denies any shortness of breath or feeling weird. He denies any chest pain or pressure. He denies any fever, chills, nausea, vomiting, diarrhea, PND or orthopnea. The patient has been started on anticoagulation and denies any bleeding. Exam Vital signs and Labs for Last 24 Hours: Temp Pulse Resp BP Pulse Ox 98.8 F 94 H 18 107/68 L 93 L 01/10/21 06:00 01/10/21 06:00 01/10/21 06:00 01/10/21 04:00 01/10/21 06:00 Laboratory Results - last 24 hr 01/09/21 10:54: WBC 10.6, RBC 5.44, Hgb 18.3 H, Hct 54.4 H, MCV 100.0 H, MCH 33.7 H, MCHC 33.7, RDW 12.7, Plt Count 227, MPV 9.6, Neut % (Auto) 67.8, Lymph % (Auto) 23.7, Gosper % (Auto) 7.0, Eos % (Auto) 0.8, Baso % (Auto) 0.7, Neut # (Auto) 7.2, Lymph # (Auto) 2.5, Gosper # (Auto) 0.7, Eos # (Auto) 0.1, Baso # (Auto) 0.1 01/09/21 10:54: Sodium 135 L, Potassium 3.9, Chloride 102, Carbon Dioxide 19 L, Anion Gap 17.9 H, BUN 18, Creatinine 0.90, Estimated Creat Clear 128, Estimated GFR 87, Est GFR ( Amer) 106, Glucose 185 H, Calcium 9.0, Troponin I 0.04 H 01/09/21 10:54: D-Dimer 3.26 H 01/09/21 13:42: SARS-CoV-2 (PCR) Not detected, Influenza A Untype (PCR) Not detected, Influenza Type B (PCR) Not detected 01/09/21 14:02: Activated Clotting Time 237 H* 01/09/21 14:59: Activated Clotting Time 373 H* D 01/09/21 16:18: APTT 135.2 H* 01/09/21 17:32: POC Glucose 139 H 01/09/21 20:00: APTT 51.8 H 01/09/21 21:04: POC Glucose 232 H 01/10/21 04:40: POC Glucose 175 H I & O for Last 24 hours: Intake & Output 01/07/21 01/08/21 01/09/21 01/10/21 23:59 23:59 23:59 23:59 Intake Total 480 / 480 672 / 672 Output Total 1600 / 1600 Balance 480 / 480 -928 / -928 Weight 217 lb 217 lb 0.016 oz - Constitutional no acute distress, obese - *Routine HEENT Exam Head: Present: normocephalic, atraumatic Eye: Present: EOMI, PERRL ENT: Present: mucous membranes moist - *Routine Neck Exam Present: supple, full ROM, normal carotid upstroke. Absent: JVD, carotid bruit, lymphadenopathy - *Routine Respiratory Exam Present: CTA bilaterally - *Routine Cardiovascular Exam Present: RRR, Normal S1, Normal S2, tachycardia. Absent: murmur - *Routine Abdominal Exam Present: soft, normoactive bowel sounds. Absent: tenderness, distended - *Routine Extremities Exam Present: full ROM, pulses intact, normal capillary refill. Absent: cyanosis, clubbing, edema - *Routine Skin Exam Present: intact, warm. Absent: erythema, rash - *Routine Neurological Exam Present: alert, oriented X3, CN II-XII intact. Absent: sensory deficit, motor deficit Progress Note: A&P (1) Pulmonary embolism Status: Resolved (2) Shortness of breath Status: Resolved (3) Sinus tachycardia Status: Acute (4) Hypertension Status: Acute (5) Diabetes mellitus Status: Acute (6) Obesity (BMI 30.0-34.9) Status: Chronic Assessment and Plan for All Diagnoses:: Plan: 1. The patient was admitted to the hospital with shortness of breath. Patient was found to have a large burden pulmonary emboli with signs of right heart strain and mild bowing of the interventricular septum. The patient was given a heparin bolus and drip. He was taken to the cardiac catheterization laboratory and underwent embolectomy with significant debulking of the PE. The patient tolerated the procedure well. 2. The patient will be on Xarelto 15 mg p.o. twice daily for 21 days and then be switched to Xarelto 20 mg daily thereafter for at least 6 months. 3. His blood pressures well controlled.
[2021-01-10 09:38] LABS: Basophils # 0.1 K/mm3 (0-0.2); Basophils % 0.5 % (0.1-2.0); Eosinophils % 0.3 % (0.1-12.0); Hematocrit 43.7 % (42.0-52.0); Lymphocytes # 1.2 K/mm3 (0.7-4.5); Lymphocytes % 11.1 % (10-50); Mean Corpuscular HGB Conc 34.8 g/dL (31.8-35.4); Mean Corpuscular Hemoglobin 33.6 pg (27.0-31.2); Mean Corpuscular Volume 96.3 fl (80-94); Mean Platelet Volume 9.6 fl (7.4-10.4); Monocytes # 0.8 K/mm3 (0.1-1.0); Neutrophils # 9.2 K/mm3 (1.8-7.8); Neutrophils % 81.2 % (37.0-80.0); Platelet Count 229 K/mm3 (142-424); Red Blood Count 4.54 M/mm3 (4.60-6.20); Red Cell Distribution Width 12.7 % (11.5-17.5); White Blood Count 11.3 K/mm3 (4.8-10.8)
--- NOTE | 2021-01-10 09:46 | HMH.PHAINT ---
MEDICATION DISCHARGE COUNSELING COMPLETE. PATIENT DID NOT HAVE ANY QUESTIONS
--- NOTE | 2021-01-10 09:58 | PC.NURSE ---
Fem site c/d/i. New dressing applied this AM. PIV removed. Pharmacy has seen patient prior to DC. DC instructions reviewed, verbalized understanding. S/O @ bedside.
[2021-01-10 10:25] LABS: Anion Gap 13.7 mEq/L (5-15); Blood Urea Nitrogen 13 mg/dl (9-20); Calcium 8.2 mg/dl (8.4-10.2); Carbon Dioxide 18 mmol/L (22.0-30.0); Chloride 102 mmol/L (98-107); Creatinine Clearance Estimated 144 mL/min (50-200); Estimated Glomerular Filt Rate 100 ml/min (>60); GFR (African American) 121 ML/MIN (>60); Glucose 248 mg/dl (74-100); Potassium 3.7 mmoL/L (3.5-5.1); Sodium 130 mmol/L (136-145)
[2021-01-10 11:01] LABS: Prostate Specific Ag Screen 0.3 ng/ml (0.0-4.0)
[2021-01-10 12:23] LABS: Hemoglobin 15.2 g/dL (14.1-18.0)
[2021-01-12 12:11] LABS: Anti-Thrombin III Antigen 72 % (72-124); Protein C Functional 101 % (73-180); Protein S Antigen, Total 116 % (60-150); Protein S Functional 125 % (63-140); Protein S, Free 107 % (61-136)
[2021-01-12 16:13] LABS: Protein C Antigen 87 % (60-150)
== END 2021-01-10 09:55 | disposition home or self-care (01) ==
LOC: ER 13:20 → CATHLAB 13:58 → 2ND 01-10 07:19
PROVIDERS: Internal Medicine; Nurse Practitioner Family; Admitting Provider Internal Medicine Adolescent Medicine; Emergency Provider Emergency Medicine; PCP Internal Medicine Adolescent Medicine; Visit Provider Internal Medicine Adolescent Medicine
DX: R07.9 Chest pain, unspecified (principal); E11.9 Type 2 diabetes mellitus without complications; Z79.84 Long term (current) use of oral hypoglycemic drugs; K21.9 Gastro-esophageal reflux disease without esophagitis; I26.92 Saddle embolus of pulmonary artery without acute cor pulmonale; I10 Essential (primary) hypertension; Z20.822 Contact with and (suspected) exposure to COVID-19
CPT/HCPCS: 36415; 37184; 71046; 71275; 80048; 81241; 82962; 84484; 85025; 85301; 85302; 85305; 85306; 85347; 85378; 85730; 93005; 93306; 96365; 96375; 99152; 99153; 99283; G0103; C1725; C1757; C1769; C1894; C9803; G0378; J1644; Q9967; U0003; U0005

== ENCOUNTER → 2021-01-12 08:00 | Outpatient (CLI) | payer BC, SELFPAY ==
--- NOTE | 2021-01-12 08:02 | CA_ITS ---
APPROVED REPORT EXAM: Comprehensive 2D, Doppler, and color-flow Echocardiogram Forestry Worker: Erna Morris RDCS Ht: 5 ft 6 in Wt: 217lbs BSA: 2.07 BP: 107/68 mmHg Indications: POST PE,CP,DM,HTN 2D Dimensions LVOT 1.91 cm (M/F) 1.5-2.5 M-Mode Dimensions RVDd 3.66 cm (0.9-2.6) LA Diam 4.05 cm (1.9-4.0) LVDd 5.31 cm (3.5-5.7) Ao Diam 3.39 cm (2.0-3.7) LVDs 3.71 cm (3.5-5.7) IVSd 0.66 cm (0.6-1.1) PWd 0.89 cm (0.6-1.1) EF (Teich) 57.00% FS 30.10% EDV (Teich) 135.90 mL TAPSE 2.31 (<1.7) ESV (Teich) 58.50 mL LV Diastology E Decel Time 203.00 (160-240 msec) E/A Ratio 0.9 MED E' 5.40 (< 7 cm/sec) E'/MED E' Ratio 10.07 (>14) LAT E' 11.40 (<10 cm/sec) E/LAT E' Ratio 4.77 (>14) Mitral Valve MV E Max Tony. 54.00 (40-130 cm/s) MV A Velocity 61.00 (40-130 cm/s) E/A Ratio 0.89 MV Decel. Time 203.00 (160-240 ms) MV PHT 60.00 ms Left Ventricle Left atrium is mildly enlarged, left ventricle is normal size, mild concentric left ventricular hypertrophy, visually estimated ejection fraction 55% with no obvious regional wall motion abnormality, grade 1 diastolic dysfunction seen without tissue Doppler evidence of raise left atrial pressure. Right Ventricle Right atrium and right ventricle moderately enlarged, contractility of the right ventricle is mild to moderately reduced. Aortic Valve Aortic valve is minimally thickened and fibrosed, there is no aortic stenosis or aortic insufficiency. Mitral Valve Mitral valve is grossly normal, there is trace mitral regurgitation. Tricuspid Valve Tricuspid valve grossly normal, there is trace tricuspid regurgitation, tricuspid regurgitation jet velocity is inadequate for calculation of the right ventricular systolic pressure. Pulmonic Valve Pulmonic valve is poorly visualized. Great Vessels Aortic root is normal size. Inferior vena cava is mildly dilated without significant inspiratory collapse. Pericardium No significant pericardial effusion noted. Conclusion 1. Biatrial enlargement, normal left ventricular size, mild concentric left ventricular hypertrophy, visually estimated ejection fraction 55% with no regional wall motion abnormality, grade 1 diastolic dysfunction seen without tissue Doppler evidence of raise left atrial pressure. 2. Moderately enlarged right ventricle with mild to moderate reduction right ventricular systolic function. 3. Trace mitral and tricuspid regurgitation. 4. No significant pericardial effusion noted. 5. Inferior vena cava is mildly dilated without significant inspiratory collapse. Electronically signed by : Wes Pike MD 01/12/2021 12:03:16
== END ==
PROVIDERS: PCP Internal Medicine Adolescent Medicine; Visit Provider Nurse Practitioner Family
DX: R06.02 Shortness of breath (principal)
CPT/HCPCS: 93306

== ENCOUNTER → 2021-01-15 15:02 | Outpatient (CLI) | payer BC, SELFPAY ==
[2021-01-15 16:30] VITALS: BMI 32.8
== END ==
PROVIDERS: PCP Internal Medicine Adolescent Medicine; Visit Provider Nurse Practitioner Family
DX: Z71.3 Dietary counseling and surveillance (principal); E11.9 Type 2 diabetes mellitus without complications
CPT/HCPCS: 97802

== ENCOUNTER 2022-04-23 08:12 | Emergency (ER) | payer BC, SELFPAY ==
[2022-04-23 08:20] VITALS: BP 155/83; PULSE 79; RESP 20; TEMP 38.8; O2SAT 97; BMI 34.4
--- NOTE | 2022-04-23 08:24 | EXP.UTC ---
Discharge Plan Disposition Patient Disposition: Home, Self-Care Condition: Good Prescriptions Prescriptions: New benzonatate [benzonatate] 100 mg capsule 100 mg PO TIDP PRN (Reason: Cough) Qty: 30 0RF methylprednisolone 4 mg Tablets,Dose Pack 4 mg PO DIRECTED Qty: 21 0RF guaifenesin [Mucinex] 600 mg tablet extended release 12hr 600 - 1,200 mg PO BIDP PRN (Reason: Congestion) Qty: 30 0RF azithromycin [Zithromax] 250 mg tablet 250 mg PO UD DOSE PK Qty: 6 0RF Rx Instructions: Take two (2) tablets today, then one (1) tablet days #2 thru #5 No Action paroxetine HCl 20 mg tablet 20 mg PO DAILY omeprazole 40 MG capsule,delayed release(DR/EC) 40 mg PO DAILY lisinopril 10 MG tablet 10 mg PO DAILY metformin 500 MG tablet extended release 24 hr 500 mg PO BID dapagliflozin 10 MG tablet 10 mg PO DAILY Xarelto 20 mg tablet 20 mg PO DAILY Rx Instructions: must administer with evening meal bisoprolol-hydrochlorothiazide 1 EACH tablet 1 each PO DAILY Rx Instructions: 10/6.25mg Referrals Follow up/Referrals: Stephen Moreno MD [Primary Care Provider] - See instructions Activity Restrictions/Add. Instructions Additional Instructions/Restrictions: Drink plenty of fluids. Take tylenol or ibuprofen for pain or fever. Take the medications as directed. Follow up with your regular doctor. GO TO THE ER FOR ANY WORSENING SYMPTOMS Clinical Impressions Clinical Impression: Sinusitis, Acute viral syndrome Instructions Patient Instructions: Sinusitis, DI for Sinusitis, DI for Viral Syndrome Discharge ED Provider: Kodak Ugarte [facility] General Stated complaint: Congestion headache cough sore throat Time Seen by Provider: 04/23/22 08:24 History of Present Illness Provider Complaint: He states that for the past 2 days he has had sinus congestion, low grade fever, scratchy sore throat, and lots of sinus drainage. He denies any known sick contacts. Related Data Home Medications Medication Instructions Recorded Confirmed bisoprolol 10 1 each PO DAILY blood pressure 06/02/17 04/23/22 mg-hydrochlorothiazide 6.25 mg tablet dapagliflozin 10 mg tablet 10 mg PO DAILY Diabetes 01/09/21 04/23/22 lisinopril 10 mg tablet 10 mg PO DAILY blood pressure 01/09/21 04/23/22 metformin 500 mg tablet,extended 500 mg PO BID Diabetes 01/09/21 04/23/22 release 24 hr omeprazole 40 mg capsule,delayed 40 mg PO DAILY Heartburn 01/09/21 04/23/22 release paroxetine HCl 20 mg tablet 20 mg PO DAILY . 08/20/21 04/23/22 rivaroxaban 20 mg tablet (Xarelto) 20 mg PO DAILY . 04/23/22 04/23/22 Previous Rx's Medication Instructions Recorded azithromycin 250 mg tablet 250 mg PO UD DOSE PK #6 tabs 04/23/22 (Zithromax) benzonatate 100 mg capsule 100 mg PO TIDP PRN Cough #30 caps 04/23/22 guaifenesin 600 mg tablet, 600 - 1,200 mg PO BIDP PRN 04/23/22 extended release 12 hr (Mucinex) Congestion #30 tabs methylprednisolone 4 mg tablets in 4 mg PO DIRECTED #21 tabs 04/23/22 a dose pack Allergies Allergy/AdvReac Type Severity Reaction Status Date / Time Penicillins Allergy Verified 04/23/22 08:27 [facility] Disclaimer: The information contained in this section may have been updated after the patient was seen, as this information can be updated by other users. Medical History Abnormal electrocardiography DACIA (obstructive sleep apnea) Social History Smoking Status: Never smoker alcohol intake: current substance use type: denies use current occupational status: employed Travel in the last 8 weeks: Inside the [place] ROS Obtained: Yes All systems reviewed & no additional complaints except as documented Constitutional Constitutional: Reports poor appetite Eyes Eyes: Reports system reviewed and no addition
[2022-04-23 08:35] LABS: UTC Strep Screen (Rapid) Negative (Negative)
[2022-04-23 08:36] LABS: UTC Influenza A Antigen Negative (Negative); UTC Influenza B Antigen Negative (Negative)
[2022-04-23 09:03] VITALS: BP 155/83; PULSE 79; RESP 20; TEMP 38.8; O2SAT 97
== END 2022-04-23 09:03 | disposition home or self-care (01) ==
PROVIDERS: Emergency Provider Nurse Practitioner Family; PCP Internal Medicine Adolescent Medicine
DX: J32.9 Chronic sinusitis, unspecified (principal); B34.9 Viral infection, unspecified
CPT/HCPCS: 87804; 87880; 99212; 99213; G0463

== ENCOUNTER 2022-08-18 08:17 | Emergency (ER) | payer BC, SELFPAY ==
[2022-08-18 08:18] VITALS: BP 136/82; PULSE 78; RESP 16; TEMP 37.2; O2SAT 96; BMI 34.4
[2022-08-18 08:40] VITALS: BP 136/82; PULSE 78; RESP 16; TEMP 37.2; O2SAT 96; BMI 34.5
--- NOTE | 2022-08-18 08:54 | EXP.UTC ---
Discharge Plan Disposition Patient Disposition: Home, Self-Care Condition: Good Prescriptions Prescriptions: New cyclobenzaprine 10 mg Tablet 10 mg PO BID PRN (Reason: Muscle Spasm) Qty: 20 0RF methylprednisolone 4 mg Tablets,Dose Pack 4 mg PO DIRECTED Qty: 21 0RF No Action paroxetine HCl 20 mg tablet 20 mg PO DAILY omeprazole 40 MG capsule,delayed release(DR/EC) 40 mg PO DAILY lisinopril 10 MG tablet 10 mg PO DAILY metformin 500 MG tablet extended release 24 hr 500 mg PO BID dapagliflozin 10 MG tablet 10 mg PO DAILY Xarelto 20 mg tablet 20 mg PO DAILY Rx Instructions: must administer with evening meal bisoprolol-hydrochlorothiazide 1 EACH tablet 1 each PO DAILY Rx Instructions: 10/6.25mg Referrals Follow up/Referrals: Stephen Moreno MD [Primary Care Provider] - See instructions Activity Restrictions/Add. Instructions Additional Instructions/Restrictions: Go home and rest. It would be best if you rested tomorrow too. No heavy lifting. No twisting. Take the oral medications as directed. The muscle relaxer (cyclobenzaprine--Flexeril) will make you drowsy, so don't drive or operate heavy machinery after taking it. Don't start the oral steroids (medrol dose pack) until tomorrow, since you had the shots in here today. Follow up with your regular doctor. GO TO THE ER FOR ANY WORSENING SYMPTOMS OR CONCERN, ESPECIALLY BOWEL OR BLADDER ISSUES, SADDLE AREA NUMBNESS, FEVER, ETC Clinical Impressions Clinical Impression: Torticollis Instructions Patient Instructions: YANI Major for Torticollis Discharge ED Provider: Kodak Ugarte [facility] General Stated complaint: Stiff Neck, no accident Mode of Arrival: Ambulatory Source of Information: Patient Limitations: No Limitations Time Seen by Provider: 08/18/22 08:54 Description of Symptoms (Recalled from Triage Doc. by RN): Right side of neck going into head. Was working out friday night, but not sure why its hurting. HEENT Symptoms (Recalled from RN notes): Yes Resp Symptoms (Recalled from RN notes): No Skin Symptoms (Recalled from RN notes): No MS Symptoms (Recalled from RN notes): No Functional Status (Recalled from RN notes): n/a History of Present Illness Provider Complaint: He states that since last night he has had neck pain and stiffness. He denies any known injury. Related Data Home Medications Medication Instructions Recorded Confirmed bisoprolol 10 1 each PO DAILY blood pressure 06/02/17 04/23/22 mg-hydrochlorothiazide 6.25 mg tablet dapagliflozin 10 mg tablet 10 mg PO DAILY Diabetes 01/09/21 04/23/22 lisinopril 10 mg tablet 10 mg PO DAILY blood pressure 01/09/21 04/23/22 metformin 500 mg tablet,extended 500 mg PO BID Diabetes 01/09/21 04/23/22 release 24 hr omeprazole 40 mg capsule,delayed 40 mg PO DAILY Heartburn 01/09/21 04/23/22 release paroxetine HCl 20 mg tablet 20 mg PO DAILY . 08/20/21 04/23/22 rivaroxaban 20 mg tablet (Xarelto) 20 mg PO DAILY . 04/23/22 04/23/22 Previous Rx's Medication Instructions Recorded cyclobenzaprine 10 mg tablet 10 mg PO BID PRN Muscle Spasm #20 08/18/22 tabs methylprednisolone 4 mg tablets in 4 mg PO DIRECTED #21 tabs 08/18/22 a dose pack Allergies Allergy/AdvReac Type Severity Reaction Status Date / Time Penicillins Allergy Verified 08/18/22 08:48 Worker's Comp Is this a Worker's Comp case?: No [facility] Disclaimer: The information contained in this section may have been updated after the patient was seen, as this information can be updated by other users. Medical History Abnormal electrocardiography DACIA (obstructive sleep apnea) Social History Smoking Status: Never smoker alcohol intake: current substance use type: denies use current occupational status: emp
[2022-08-18 09:32] VITALS: BP 136/82; PULSE 78; RESP 16; TEMP 37.2; O2SAT 96
== END 2022-08-18 09:32 | disposition home or self-care (01) ==
LOC: ER 08:27 → UTC 08:27
PROVIDERS: Emergency Provider Nurse Practitioner Family; PCP Internal Medicine Adolescent Medicine
DX: M43.6 Torticollis (principal); G47.33 Obstructive sleep apnea (adult) (pediatric)
CPT/HCPCS: 96372; 99212; 99214; G0463

== ENCOUNTER 2023-07-15 13:35 | Outpatient (CLI) | payer BC, SELFPAY ==
--- NOTE | 2023-07-15 13:42 | CA_ITS ---
APPROVED REPORT EXAM: Comprehensive 2D, Doppler, and color-flow Echocardiogram Director Payer: CASEY Sherman, RVS Ht: 5 ft 7 in Wt: 225lbs BSA: 2.13 BP: 159/86 mmHg Indications: HTN, H/o PE, Abn EKG, DACIA, Obesity 2D Dimensions Left Atrium 3.91 cm M: 3.0 - 4.0 LA Volume 60.30 mL LA Volume Index 28.225371 mL/m2 (M/F) 16-34 M-Mode Dimensions RVDd 3.32 cm (0.9-2.6) LA Diam 4.02 cm (1.9-4.0) LVDd 5.14 cm (3.5-5.7) LVDs 3.21 cm (3.5-5.7) IVSd 0.82 cm (0.6-1.1) PWd 0.79 cm (0.6-1.1) EF (Teich) 67.20% EPSs 0.47 cm FS 37.50% EDV (Teich) 126.10 mL TAPSE 2.20 (<1.7) ESV (Teich) 41.30 mL LV Diastology E Decel Time 207 (160-240 msec) E/A Ratio 1.15 MED A' 11.80 cm/s LAT A' 13.70 cm/s Pulm Vein s 53.00 cm/sec Pulm Vein d 29.00 cm/sec Ar-A Duration 107.00 msec Aortic Valve JORDAN Index 1.32 cm2/m2 AoV Peak Tony. 121.0 (50-130 cm/s) AO Peak GR. 5.90 mmHg AO Mean GR. 3.00 (<5 mmHg) AO VTI 22.7 (18-25 cm) JORDAN (VTI) 2.87 (2.5-4.5 cm2) Mitral Valve MV A Velocity 58.0 (40-130 cm/s) E/A Ratio 1.15 Pulmonary Valve PV Peak Velocity 101.0 (50-150 cm/s) Tricuspid Valve TR P. Velocity 200.00 cm/s Left Ventricle The left ventricle is normal size. The left ventricular systolic function is normal. The left ventricular ejection fraction is within the normal range. There is normal left ventricular wall thickness. There is normal LV segmental wall motion. The left ventricular diastolic function is normal. LVEF is 55%. Right Ventricle The right ventricle is normal size. The right ventricular systolic function is normal. Atria The left atrium size is normal. The right atrium size is normal. There is no Doppler evidence of interatrial shunt. Aortic Valve The aortic valve opens well. There is no aortic valvular stenosis. No aortic regurgitation is present. Mitral Valve The mitral valve is normal in structure. No evidence of mitral valve stenosis. Trace mitral regurgitation. Tricuspid Valve The tricuspid valve leaflets are thin and pliable. Trace tricuspid regurgitation. There is insufficient TR jet to estimate RVSP. Pulmonic Valve The pulmonary valve is normal in structure. Trace pulmonic regurgitation. Great Vessels The aortic root is normal in size. The ascending aorta is normal in size. IVC is normal in size and collapses >50% with inspiration. Pericardium There is no pericardial effusion. Other Information Study Quality: Adequate Conclusion Normal biventricular systolic function. No significant valvular stenosis or regurgitation. Electronically signed by : Vicki Ramirez MD 07/20/2023 15:24:11
== END 2023-07-15 23:59 ==
LOC: RT 13:37
PROVIDERS: PCP Nurse Practitioner Family; Visit Provider Physician Assistant
DX: I49.3 Ventricular premature depolarization (principal); I26.92 Saddle embolus of pulmonary artery without acute cor pulmonale; I10 Essential (primary) hypertension; R94.31 Abnormal electrocardiogram [ECG] [EKG]; G47.33 Obstructive sleep apnea (adult) (pediatric); E66.9 Obesity, unspecified; Z68.35 Body mass index [BMI] 35.0-35.9, adult
CPT/HCPCS: 93306

== ENCOUNTER 2023-09-30 11:33 | Outpatient (POV) | payer BC, SELFPAY | END 2023-09-30 23:59 | disposition home or self-care (01) | LOC: SC 11:34 | PROVIDERS: PCP Nurse Practitioner Family; Visit Provider Dermatology | DX: Z00.00 Encounter for general adult medical examination without abnormal findings (principal) ==

== ENCOUNTER 2024-10-28 07:39 | Day surgery (SDC) | payer BC, SELFPAY ==
[2024-10-26 10:07] VITALS: BMI 35.2
[2024-10-28 07:56] VITALS: BP 163/92; PULSE 84; RESP 16; O2SAT 96
--- NOTE | 2024-10-28 08:00 | EXP.GEN.HP ---
HPI HPI HPI: The patient presents for left shoulder apex lipoma excision. See office visit note dated October 20, 2024 for detail. [facility] Disclaimer: The information contained in this section may have been updated after the patient was seen, as this information can be updated by other users. Medical History DACIA (obstructive sleep apnea) Abnormal electrocardiography Surgical History History of knee surgery Family History No significant family history Social History Smoking Status: Never smoker alcohol intake: current alcohol intake frequency: holidays/special occasions only substance use type: denies use current occupational status: employed Travel in the last 8 weeks?: None Have you lived/traveled outside [place] in past 30 days?: No Contact w/someone who lives/traveled outside US past 30 days?: No Exposure to someone with infectious disease in past 14 days?: No Do you have a fever (greater than 100.4 F or 38 C)?: No Have you tested positive for COVID-19?: No Exposed to someone with COVID-19 in past 14 days?: No Do you have a sore throat?: No Do you have a cough?: No Do you have any weakness?: No Do you have any diarrhea?: No Are you experiencing any unusual bleeding?: No Do you have any muscle aches/pain?: No Do you have any abdominal pain?: No Are you experiencing loss of taste or smell?: No Other Medical History Have you received the Flu Vaccine for this season: No Have you received the Pneumonia Vaccine: No Review of Systems Review of Systems Review of systems:: pertinent systems reviewed and negative unless documented below Meds Home Medications and Allergies Home Medications ?Medication ?Instructions ?Recorded ?Confirmed ?Type metformin 500 mg tablet,extended 500 mg PO BID Diabetes 01/09/21 10/28/24 History release 24 hr omeprazole 40 mg capsule,delayed 40 mg PO DAILY Heartburn 01/09/21 10/28/24 History release paroxetine HCl 20 mg tablet 20 mg PO DAILY . 08/20/21 10/28/24 History rivaroxaban 20 mg tablet (Xarelto) 20 mg PO DAILY . 04/23/22 10/28/24 History bisoprolol fumarate 10 mg tablet 10 mg PO DAILY 08/18/23 10/28/24 History lisinopril 40 mg tablet 40 mg PO DAILY 10/26/24 10/28/24 History New Prescriptions to Start Prescriptions: Allergies Allergy/AdvReac Type Severity Reaction Status Date / Time Penicillins Allergy Unknown Verified 10/28/24 07:55 allergy reaction Exam Data for Last 24 hours Vital signs and Labs for Last 24 Hours: Pulse Resp BP Pulse Ox O2 Del Method 84 16 163/92 H 96 Room Air 10/28/24 07:56 10/28/24 07:56 10/28/24 07:56 10/28/24 07:56 10/28/24 07:56 I & O for Last 24 hours: Intake & Output 10/25/24 10/26/24 10/27/24 10/28/24 11:59 11:59 11:59 11:59 Weight 225 lb Constitutional Constitutional: no acute distress *Routine HEENT Exam Head: Present normocephalic Eye: Present EOMI ENT: Present mucous membranes moist *Routine Neck Exam Neck: Present full ROM Routine Chest/Breast/Axilla Exam Comments: Unchanged 5 cm left shoulder apex lipoma *Routine Respiratory Exam Respiratory: Absent respiratory distress *Routine Cardiovascular Exam Cardiovascular: Absent tachycardia *Routine Abdominal Exam Abdominal: Present soft *Routine Rectal Exam Rectal:: deferred *Routine Genitalia Exam Genitalia:: deferred *Routine Extremities Exam Extremities: Present full ROM *Routine Skin Exam Skin: Absent erythema *Routine Neurological Exam Neurological: Present alert Assessment and Plan *Assessment and plan (1) Lipoma of left shoulder: Status: Acute Category: Medical Code(s): D17.22 - Benign lipomatous neoplasm of skin and subcutaneous tissue of left arm Plan: Excision of left shoulder lipoma today I have discussed the risks and benefits including, but not limited to: Bleeding Infection Damage to surrounding tissue Inherent risks of sedation The patient agrees to proceed.
--- NOTE | 2024-10-28 08:38 | EXP.OP.NOTE ---
Date of procedure: 10/28/24 Pre-op Diagnosis:: Left shoulder apex lipoma (5 cm) Post-op Diagnosis:: Same Procedure performed:: Excision 5 cm left shoulder apex lipoma Surgeon:: Ron Felton MD Anesthesia: local Estimated blood loss (mL): 10 Operative findings:: Complex lobulated 5 cm fatty tumor Operative note:: After informed consent was obtained the patient was taken to the procedure room and maintained in a supine position. His left shoulder apex and surrounding region were prepped and draped in a sterile fashion. After infiltration with local anesthetic an incision was made overlying the palpable lesion. A combination of sharp dissection, blunt dissection, and electrocautery was utilized to transect through the deeper subcutaneous tissue in order to excise a complex multilobulated fatty tumor. The lesion was excised in toto and passed off for pathologic evaluation. Electrocautery was utilized to achieve hemostasis. Skin was then reapproximated with interrupted 4-0 nylon in a mattress fashion. Dressings were applied and the patient was discharged home in stable condition. Condition: stable Disposition: no change Specimens:: Left shoulder apex lipoma Complications:: No immediate
[2024-10-28 08:39] VITALS: BP 167/108; PULSE 77; RESP 17; TEMP 36.1; O2SAT 96
[2024-10-28] MEDS: LIDOCAINE 1% 20ML MDV 20 ML (09:16)
== END 2024-10-28 08:52 | disposition home or self-care (01) ==
PROVIDERS: PCP Nurse Practitioner Family; Visit Provider Surgery
PROC: (CPT 23071; principal; 2024-10-28 08:30)
DX: D17.22 Benign lipomatous neoplasm of skin and subcutaneous tissue of left arm (principal); G47.33 Obstructive sleep apnea (adult) (pediatric); Z88.0 Allergy status to penicillin; Z79.84 Long term (current) use of oral hypoglycemic drugs; Z79.01 Long term (current) use of anticoagulants; Z79.899 Other long term (current) drug therapy
CPT/HCPCS: 23071; J2003